=== PATIENT | male | born 1945 | race Caucasian/White ===

== ENCOUNTER 2017-06-18 20:43 | Emergency (ER) | payer MEDICARE ==
[~2017-06-18] VITALS: Ht 180.3 cm; Wt 105.0 kg
[~2017-06-18 20:43] MED LIST: ALBU1AER INH; ASPI81 CHEW; CARV3.125 PO; GABA100C4 PO; METF850 PO; NOVOLOGMXP SQ; OMEP20TA39 PO; POTA10IN2 PO; SIMV40TA PO; SINE25TA2 PO; TAMS.4 PO; TERA5CAP3 PO; ZOLP10TA3 PO
[2017-06-18 20:51] VITALS: BP 146/69; PULSE 86; RESP 18; TEMP 97.3; O2SAT 92
[2017-06-18 20:56] VITALS: PULSE 68; RESP 18; O2SAT 95
[2017-06-18] MEDS ORDERED: SODIUM CHLORIDE 0.9% FLUSH 10 ML FLUSH IV FLUSH PRN (21:15)
[2017-06-18] MEDS ORDERED: ONDANSETRON HCL 4 MG/2 ML VIAL IVP ONE (21:15)
--- NOTE | 2017-06-18 21:35 | PD ---
HPI Chief Complaint: GI Complaint Time Seen by Provider: 20:59 Travel History International Travel<30 days: No Contact w/Intl Traveler<30days: No Traveled to known affect area: No History of Present Illness HPI Patient reports drinking 72-year-old male complains of nausea and sensation of feeling generally weak. EMS brings the patient to the ER after he had difficulty getting up from a wheelchair. He fell to the ground and was unable to get up thus prompting the citizens assist visit. Alcohol tonight which is unusual for him, reportedly to whiskey drinks. PFSH Past Medical History Arthritis: Yes Asthma: No Autoimmune Disease: No Blood Disorders: No Anxiety: No Depression: No Heart Rhythm Problems: No Cancer: No Cardiovascular Problems: Yes High Cholesterol: No Chemotherapy: No Chest Pain: No Congestive Heart Failure: No COPD: No Cerebrovascular Accident: No Diabetes: Yes Patient Takes Glucophage: Yes Diminished Hearing: No Endocrine: Yes ("GROWTH ON ADRENAL GLAND") Gastrointestinal Disorders: Yes GERD: No Genitourinary: Yes (BPH) Headaches: Yes Hepatitis: No Hiatal Hernia: No Hypertension: Yes Immune Disorder: No Implanted Vascular Access Dvce: Yes Kidney Stones: No Medical other: Yes (HYDRODCEPHALUS) Musculoskeletal: Yes Neurologic: Yes Psychiatric: No Reproductive: No Respiratory: Yes Migraines: No Radiation Therapy: No Renal Failure: No Seizures: No Sleep Apnea: Yes Thyroid Disease: No Ulcer: No Past Surgical History Abdominal Surgery: Yes (GALLBLADDER REMOVED) AICD: No Arteriovenous Shunt: Yes Cardiac Surgery: No Cholecystectomy: Yes Ear Surgery: No Endocrine Surgery: No Eye Surgery: Yes (CATARACT AND DETATCH RETINA LT EYE 2009,CATARACT SX LEFT EYE) Genitourinary Surgery: No Insulin Pump: No Neurologic Surgery: Yes (COMMUNICATIONS LEAD shunt for NPH) Oral Surgery: No Pacemaker: No Thoracic Surgery: No Other Surgery: Yes (SHUNT IN BRAIN FOR HYDROCEHPALUS) Social History Alcohol Use: Yes (COUPLE TIMES PER WEEK) Tobacco Use: No Substance Use: No Allergies-Medications (Allergen,Severity, Reaction): Coded Allergies: diatrizoate meglumine (Unverified Allergy, Severe, 06/18/17) gadobenic acid (Unverified Allergy, Severe, 06/18/17) gadodiamide (Unverified Allergy, Severe, 06/18/17) gadoteridol (Unverified Allergy, Severe, 06/18/17) iodixanol (Unverified Allergy, Severe, 06/18/17) iohexol (Unverified Allergy, Severe, 06/18/17) Reported Meds & Prescriptions Reported Meds & Active Scripts Active Coreg 3.125 mg (Carvedilol) 3.125 Mg Tab 3.125 Mg PO DAILY 30 Days Tamsulosin HCl 0.4 Mg Cap 0.4 Mg PO DAILY Reported Hm Omeprazole (Omeprazole) 20 Mg Tab 20 Mg PO DAILY Glucophage 850 mg (Metformin HCl) 850 Mg Tab 850 Mg PO DAILY Novolog Mix 70/30 (Insulin Aspart Protamine & Asp) 70 /30 Inj 30 Units SQ HS Novolog Mix 70/30 (Insulin Aspart Protamine & Asp) 70 /30 Inj 50 Units SQ DAILY Gabapentin 100 Mg Cap 100 Mg PO TID Carbidopa/Levodopa Er (Carbidopa-Levodopa) Tab 3.12 Mg PO DAILY Proair Hfa (Albuterol Sulfate) 8.5 Gm Aero 2 Puff INH Q6 * SHAKE WELL BEFORE USE * Zolpidem Tartrate 10 Mg Tab 10 Mg PO HS Potassium Chloride ER 10 meq (Potassium Chloride) 10 Meq Cap 1 Cap PO DAILY Terazosin Hcl (Terazosin HCl) 5 Mg Cap 5 Mg PO DAILY Aspirin 81 Mg Tab 81 Mg CHEW DAILY Simvastatin 40 Mg Tab 20 Mg PO HS Review of Systems Except as stated in HPI: all other systems reviewed are Neg General / Constitutional: No: Fever Physical Exam Narrative GENERAL: 72-year-old male pleasant well-nourished well-developed Vital Signs Date Time Temp Pulse Resp B/P (MAP) Pulse Ox O2 Delivery O2 Flow Rate FiO2 06/18/17 20:56 68 18 95 Nasal Cannula 2.00 06/18/17 20:51 97.3 86 18 146/69 (94) 92 SKIN: Warm and dry. HEAD: Atraumatic. Normocephalic. Right ventriculoperitoneal shunt. EYES: Pupils equal and round. No scleral icterus. No injection or drainage. ENT: No nasal bleeding or discharge. Mucous membranes pink and moist. NECK: Trachea midline. No JVD. CARDIOVASCULAR: Regular rate and rhythm. RESPIRATORY: No accessory muscle use. Clear to auscultation. Breath sounds equal bilaterally. GASTROINTESTINAL: Abdomen soft, non-tender, nondistended. Hepatic and splenic margins not palpable. MUSCULOSKELETAL: Extremities without clubbing, cyanosis, or edema. No obvious deformities. NEUROLOGICAL: Awake and alert. No obvious cranial nerve deficits. Motor grossly within normal limits. Five out of 5 muscle strength in the arms and legs. Normal speech. PSYCHIATRIC: Appropriate mood and affect; insight and judgment normal. Data Data Last Documented VS Vital Signs Date Time Temp Pulse Resp B/P (MAP) Pulse Ox O2 Delivery O2 Flow Rate FiO2 06/18/17 23:12 100 06/18/17 20:56 68 18 Nasal Cannula 2.00 06/18/17 20:51 97.3 146/69 (94) Orders Orders Complete Blood Count With Diff (06/18/17 21:02) Comprehensive Metabolic Panel (06/18/17 21:02) Iv Access Insert/Monitor (06/18/17 21:02) Ecg Monitoring (06/18/17 21:02) Oximetry (06/18/17 21:02) Ondansetron Inj (Zofran Inj) (06/18/17 21:15) Sodium Chloride 0.9% Flush (Ns Flush) (06/18/17 21:15) Electrocardiogram (06/18/17 21:02) Chest, Single Ap (06/18/17 21:02) Potassium Chloride (Kcl) (06/18/17 22:30) Ed Discharge Order (06/18/17 22:23) Labs Laboratory Tests Test 06/18/17 21:15 White Blood Count 10.0 TH/MM3 Red Blood Count 5.16 MIL/MM3 Hemoglobin 15.3 GM/DL Hematocrit 44.4 % Mean Corpuscular Volume 85.9 FL Mean Corpuscular Hemoglobin 29.7 PG Mean Corpuscular Hemoglobin Concent 34.6 % Red Cell Distribution Width 13.5 % Platelet Count 238 TH/MM3 Mean Platelet Volume 7.8 FL Neutrophils (%) (Auto) 65.8 % Lymphocytes (%) (Auto) 24.6 % Monocytes (%) (Auto) 6.3 % Eosinophils (%) (Auto) 2.7 % Basophils (%) (Auto) 0.6 % Neutrophils # (Auto) 6.6 TH/MM3 Lymphocytes # (Auto) 2.5 TH/MM3 Monocytes # (Auto) 0.6 TH/MM3 Eosinophils # (Auto) 0.3 TH/MM3 Basophils # (Auto) 0.1 TH/MM3 CBC Comment DIFF FINAL Differential Comment Blood Urea Nitrogen 11 MG/DL Creatinine 1.19 MG/DL Random Glucose 165 MG/DL Total Protein 7.7 GM/DL Albumin 3.6 GM/DL Calcium Level 8.6 MG/DL Alkaline Phosphatase 101 U/L Aspartate Amino Transf (AST/SGOT) 12 U/L Alanine Aminotransferase (ALT/SGPT) 8 U/L Total Bilirubin 0.7 MG/DL Sodium Level 138 MEQ/L Potassium Level 3.3 MEQ/L Chloride Level 102 MEQ/L Carbon Dioxide Level 27.9 MEQ/L Anion Gap 8 MEQ/L Estimat Glomerular Filtration Rate 60 ML/MIN MDM Medical Decision Making Medical Screen Exam Complete: Yes Emergency Medical Condition: Yes Medical Record Reviewed: Yes Differential Diagnosis Anemia, alcohol intoxication, electrolyte imbalance Narrative Course CBC & BMP Diagram 06/18/17 21:15 Total Protein 7.7, Albumin 3.6, Calcium Level 8.6, Alkaline Phosphatase 101, Aspartate Amino Transf (AST/SGOT) 12 L, Alanine Aminotransferase (ALT/SGPT) 8 L , Total Bilirubin 0.7 Symptoms are considered most in keeping with alcohol intoxication. Patient reports significant improvement with Zofran. Patient is ready for discharge. Diagnosis Primary Impression: Fall Qualified Codes: W19.XXXA - Unspecified fall, initial encounter Additional Impression: Alcohol intoxication Qualified Codes: F10.929 - Alcohol use, unspecified with intoxication, unspecified Referrals: Primary Care Physician call for appointment Med/Other Pt SpecificInfo: No Change to Meds Disposition: 01 DISCHARGE HOME Condition: Stable Ovidio Almazan MD Jun 18, 2017 21:35
--- NOTE | 2017-06-18 21:37 | RADRPT ---
EXAM DATE/TIME: 06/18/2017 21:17 [facility] COMPARISON: CHEST SINGLE AP, January 25, 2015, 3:30. INDICATIONS : Shortness of breath and chest pain. MEDICAL HISTORY : None. SURGICAL HISTORY : None. ENCOUNTER: Initial ACUITY: 1 day PAIN SCORE: 7/10 LOCATION: Bilateral chest FINDINGS: Shunt tubing overlies right hemithorax. Mild basilar atelectasis. No effusion. No pneumothorax. Heart size enlarged. CONCLUSION: 1. Mild basilar atelectasis. No effusion. Elia Zuñiga MD on June 18, 2017 at 21:34 Board Certified Radiologist. This report was verified electronically.
[2017-06-18 21:58] LABS: AUTOMATED NEUTROPHIL # 6.6 TH/MM3 (1.8-7.7); BASOPHIL # 0.1 TH/MM3 (0-0.2); BASOPHIL % 0.6 % (0.0-2.0); EOSINOPHIL # 0.3 TH/MM3 (0-0.4); EOSINOPHIL % 2.7 % (0.0-4.0); HEMATOCRIT 44.4 % (39.0-51.0); HEMOGLOBIN 15.3 GM/DL (13.0-17.0); LYMPH % 24.6 % (9.0-44.0); LYMPHOCYTE # 2.5 TH/MM3 (1.0-4.8); MEAN CELL VOLUME 85.9 FL (80.0-100.0); MEAN CORPUSCULAR HEMOGLOBIN 29.7 PG (27.0-34.0); MEAN CORPUSCULAR HGB CONC 34.6 % (32.0-36.0); MEAN PLATELET VOLUME 7.8 FL (7.0-11.0); MONO % 6.3 % (0.0-8.0); MONOCYTE # 0.6 TH/MM3 (0-0.9); NEUT % 65.8 % (16.0-70.0); PLATELET COUNT 238 TH/MM3 (150-450); RED BLOOD COUNT 5.16 MIL/MM3 (4.50-5.90); RED CELL DISTRIBUTION WIDTH 13.5 % (11.6-17.2)
[2017-06-18 22:06] LABS: ALBUMIN 3.6 GM/DL (3.4-5.0); AST (GOT) 12 U/L (15-37); BICARBONATE 27.9 MEQ/L (21.0-32.0); BLOOD UREA NITROGEN 11 MG/DL (7-18); CALCIUM 8.6 MG/DL (8.5-10.1); CHLORIDE 102 MEQ/L (98-107); CREATININE 1.19 MG/DL (0.60-1.30); GLOMERULAR FILTRATION RATE 60 ML/MIN (>89); GLUCOSE,RANDOM 165 MG/DL (74-106); SODIUM (NA) 138 MEQ/L (136-145)
[2017-06-18 22:10] LABS: ALKALINE PHOSPHATASE 101 U/L (45-117); ALT (GPT) 8 U/L (12-78); TOTAL BILIRUBIN ADULT 0.7 MG/DL (0.2-1.0); TOTAL PROTEIN 7.7 GM/DL (6.4-8.2)
[2017-06-18] MEDS ORDERED: POTASSIUM CHLORIDE 20 MEQ CONTROLLED RELEASE TAB PO ONE (22:30)
[2017-06-18 23:12] VITALS: O2SAT 100
--- NOTE | 2017-06-19 16:54 | EKG ---
Date Performed: 06/18/2017 Time Performed: 20:58:14 PTAGE: 72 years EKG: Sinus rhythm WITH SINUS ARRHYTHMIA MODERATE INTRAVENTRICULAR CONDUCTION DELAY NONSPECIFIC T-WAVE ABNORMALITY B[facility] ECG Since the PREVIOUS TRACING , no significant change noted PREVIOUS TRACIN02/13/2015 20.48 DOCTOR: Winnie Sandoval Interpretating Date/Time 06/19/2017 16:51:54
== END 2017-06-19 00:19 | disposition home or self-care (01) ==
LOC: NEPC 20:43
DX: F10.929 Alcohol use, unspecified with intoxication, unspecified (principal); R94.31 Abnormal electrocardiogram [ECG] [EKG]; M19.90 Unspecified osteoarthritis, unspecified site; E11.9 Type 2 diabetes mellitus without complications; N40.0 Benign prostatic hyperplasia without lower urinary tract symptoms; I10 Essential (primary) hypertension; W05.0XXA Fall from non-moving wheelchair, initial encounter; Z79.4 Long term (current) use of insulin; Z79.84 Long term (current) use of oral hypoglycemic drugs; Z79.82 Long term (current) use of aspirin
CPT/HCPCS: 71045; 80053; 85025; 93005; 96374; 99285; J2405